=== PATIENT | female | born 1990 | race Caucasian/White ===

== ENCOUNTER 2017-05-28 14:00 | Emergency (ER) | payer SELFPAY ==
[~2017-05-28] VITALS: Ht 162.6 cm; Wt 41.7 kg
[2017-05-28] MEDS ORDERED: IV NORMAL SALINE 1,000ML 1,000 ML IV ONE ×2 (14:15→15:20)
--- NOTE | 2017-05-28 14:17 | PHYS DOC ---
Past History Past Medical History: No Pertinent History Past Surgical History: No Surgical History Alcohol Use: None Drug Use: None Adult General Chief Complaint Chief Complaint: soa HPI HPI 26-year-old female presenting to the emergency department today with shortness of breath. The patient reports having a history of Crohn's disease. Her shortness of breath is worse with walking and she noticed she had a fast heart rate today. She denies unilateral leg swelling hemoptysis personal or family history of blood clotting disorders. she denies having chest pain. She recently lost insurance and so has not been on medications for her Crohn's disease. She reports chronic diarrhea for more than a year. Her shortness of breath started today. It was not sudden in onset. Nonradiating. Without alleviating or exacerbating factors. Review of systems is negative for chest pain abdominal pain nausea vomiting fevers or chills. All other review of systems is negative unless otherwise noted in history of present illness. ED course: 26-year-old female presenting to the emergency department with shortness of breath. Patient was quite tachycardic on initial triage vital signs at 130. EKG shows a sinus rhythm with a regular rate. Reviewed by myself. Chest x-ray along with blood work obtained. IV fluids given. test negative. Sinus tachycardia likely secondary to dehydration. IV fluid administration ordered and after administration the patient's heart rate came down to the mid 90s to low 90s. D-dimer elevated. CT angiogram negative for pulmonary embolism. I recommended the patient follow up with her primary care physician her GI doctor a corporate human resources manager and possible psychologist for malnutrition and possible eating disorder. The patient was then discharged home in stable condition to follow up with their primary care physician over the next 2-3 days. They were to return if their symptoms worsened or if they were concerned for any reason. [id number] discharge instructions and return precautions were given. Patient's questions were answered to their satisfaction. Patient is comfortable plan. Review of Systems Review of Systems SEE ABOVE. Physical Exam Physical Exam Constitutional: thin and malnourished, no acute distress, non-toxic appearance. [] HENT: Normocephalic, atraumatic, bilateral external ears normal, oropharynx moist, no oral exudates, nose normal. [] Eyes: PERRLA, EOMI, conjunctiva normal, no discharge. [] Neck: Normal range of motion, no tenderness, supple, no stridor. [] Cardiovascular: tachy Heart rate w/ regular rhythm, no murmur [] Lungs & Thorax: Bilateral breath sounds clear to auscultation [] Abdomen: Bowel sounds normal, soft, no tenderness, no masses, no pulsatile masses. [] Skin: Warm, dry, no erythema, no rash. [] Back: No tenderness, no CVA tenderness. [] Extremities: No tenderness, no cyanosis, no clubbing, ROM intact, no edema. [] Neurologic: Alert and oriented X 3, normal motor function, normal sensory function, no focal deficits noted. [] Psychologic: Affect normal, judgement normal, mood normal. [] EKG EKG [] Radiology/Procedures Radiology/Procedures [] Course & Med Decision Making Course & Med Decision Making Pertinent Labs and Imaging studies reviewed. (See chart for details) [] Dragon Disclaimer Dragon Disclaimer This chart was dictated in whole or in part using Voice Recognition software in a busy, high-work load, and often noisy Emergency Department environment. It may contain unintended and wholly unrecognized errors or omissions. Departure Departure: Impression: Primary Impression: Shortness of breath Additional Impressions: Sinus tachycardia Malnourished Disposition: HOME, SELF-CARE Condition: STABLE Referrals: PCP,JULIO CESAR (PCP) Patient Instructions: Shortness of Breath Additional Instructions: Thank you for allowing us to participate in your care today. Followup with your primary care physician in 3 days if your symptoms do not improve. Call your Primary Doctor tomorrow and inform them of your visit today. If you do not have a primary care provider you can ask for a list of our primary care providers. Return to the emergency department you have any new or concerning findings. This should be evaluated by the primary care physician and any necessary consulting services for continued management within a few days after discharge. Return to emergency room if you have any new or concerning symptoms including but not limited to fever, chills, nausea, vomiting, intractable pain, any new rashes, chest pain, shortness of air, uncontrolled bleeding, difficulty breathing, and/or vision loss. Problem Qualifiers GRAEME DAVIES MD May 28, 2017 14:17
--- NOTE | 2017-05-28 14:38 | RAD ---
AP chest radiograph 05/28/2017 Clinical history: Shortness of breath. History of Crohn's disease. AP erect digital radiograph of the chest was obtained. No previous studies are available for comparison. The cardiac and mediastinal silhouettes are within normal limits in size and configuration. No pulmonary infiltrate is seen. No pleural effusion or pneumothorax is noted. The osseous structures are grossly intact. Impression: No radiographic evidence of active cardiopulmonary disease.
[2017-05-28 14:40] LABS: BASO # 0.1 x10^3/uL (0.0-0.2); BASO % 1 % (0-3); EOS # 0.2 x10^3/uL (0.0-0.7); EOS % 2 % (0-3); HEMATOCRIT 38.2 % (36.0-47.0); HEMOGLOBIN 12.5 g/dL (12.0-15.5); LYMPH % 18 % (24-48); MEAN CORPUSCULAR HEMOGLOBIN 26 pg (25-35); MEAN CORPUSCULAR HGB CONC 33 g/dL (31-37); MEAN CORPUSCULAR VOLUME 79 fL (79-100); MONO # 0.8 x10^3/uL (0.0-1.1); MONO % 8 % (0-9); NEUT # 7.8 x10^3uL (1.8-7.7); NEUT % 72 % (31-73); PLATELET COUNT 509 x10^3/uL (140-400); RED BLOOD COUNT 4.86 x10^6/uL (3.50-5.40); RED CELL DISTRIBUTION WIDTH 14.9 % (11.5-14.5); WHITE BLOOD COUNT 10.9 x10^3/uL (4.0-11.0)
--- NOTE | 2017-05-28 14:44 | EKG ---
[address] [address] Test Date: 2017-05-28 Test Time: 14:35:29 Pat Name: KAJAL LAZARO Department: Room: Gender: F [employer]: : 1990 Requested By: GRAEME DAVIES Order Number: [id number] Reading MD: Measurements Intervals [place] Rate: 118 P: 78 WI: 120 QRS: 82 QRSD: 76 T: 42 QT: 310 QTc: 437 Interpretive Statements SINUS TACHYCARDIA QRS(T) CONTOUR ABNORMALITY CONSIDER INFERIOR MYOCARDIAL DAMAGE RI6.01 Unconfirmed report No previous ECG available for comparison
[2017-05-28] MEDS ORDERED: IPRATRPIUM/ALBUTEROL 0.5/2.5MG 3 ML NEBU. NEB ONE (14:45)
[2017-05-28 14:50] LABS: BILIRUBIN,URINE NEG (NEG); CLARITY,URINE CLOUDY; COLOR,URINE AMBER; GLUCOSE,URINE NEG (NEG)
[2017-05-28 14:51] LABS: BACTERIA,URINE MOD /HPF (0-FEW); NITRITE,URINE NEG (NEG); UROBILINOGEN,URINE 0.2 mg/dL (0.2 mg/dL)
[2017-05-28 14:52] LABS: SQUAMOUS EPITHELIAL CELL,UR MOD /LPF
[2017-05-28 14:57] LABS: ALBUMIN 2.8 g/dL (3.4-5.0); CALCIUM 8.7 mg/dL (8.5-10.1); CREATININE 0.7 mg/dL (0.6-1.0); GFR 101.1; TOTAL BILIRUBIN 0.3 mg/dL (0.2-1.0)
[2017-05-28 15:08] LABS: DIRECT BILIRUBIN 0.1 mg/dL (0.0-0.2)
[2017-05-28 15:09] LABS: POTASSIUM 4.1 mmol/L (3.5-5.1)
[2017-05-28] MEDS ORDERED: IOHEXOL 300 MG/ML 75 ML VIAL. IV ONE (15:45)
--- NOTE | 2017-05-28 16:08 | RAD ---
CTA of the chest. 05/28/2017 Indication: [Chest pain] Comparison study: [Chest radiograph, earlier today] Technique: Multidetector CT imaging of the chest was performed following the administration of intravenous contrast. Multiple reconstructions including 3-D maximum intensity projection reconstructions were created on an independent workstation and reviewed. Findings: There is no evidence of filling defect within central pulmonary arteries or other evidence of acute pulmonary embolism. Heart size is normal. No significant pericardial effusion is seen. No pathologic mediastinal adenopathy is identified. No focal consolidation or infiltrate is seen. No pneumothorax or pleural effusion is seen. No acute osseous abnormality is identified. Limited visualization of the upper abdomen demonstrates no acute abnormality. Impression: No evidence of acute pulmonary embolism or other acute cardiopulmonary process. PQRS Compliance Statement: One or more of the following individualized dose reduction techniques were utilized for this examination: 1. Automated exposure control 2. Adjustment of the mA and/or kV according to patient size 3. Use of iterative reconstruction technique
[2017-05-28 16:17] VITALS: BP 107/61
== END 2017-05-28 17:00 | disposition home or self-care (01) ==
LOC: ER 14:00
DX: R00.0 Tachycardia, unspecified (principal); E46 Unspecified protein-calorie malnutrition; K50.90 Crohn's disease, unspecified, without complications
CPT/HCPCS: 36415; 71010; 71275; 80048; 80076; 81001; 81025; 83690; 83880; 85027; 85379; 93005; 94640; 96360; 96361; 99285; J7620; J7030